=== PATIENT | female | born 1965 ===

== ENCOUNTER 2023-08-27 09:12 | Emergency (ER) | payer BC, SELFPAY ==
[2023-08-27] VITALS (10 sets, daily range): BP systolic 129–134; BP diastolic 74–83; PULSE 79–91; RESP 18; TEMP 36.4–36.5; O2SAT 93–97; BMI 32.8
--- NOTE | 2023-08-27 09:47 | ED_ITS ---
HPI - General Adult General Date Seen: 08/27/23 Chief complaint: Shortness of Breath/Dyspnea Stated complaint: pain rib area,difficulty breathing Time Seen by Provider: 08/27/23 09:33 Source: patient Mode of arrival: ambulatory Limitations: no limitations History of Present Illness HPI narrative: patient is a 58-year-old female with a history of hypothyroidism, asthma, hyperlipidemia presenting to the emergency department for cough, chest pain. She states beginning of July she tested positive for COVID and had upper respiratory symptoms for about 2 weeks. She was feeling better but then states about a week ago the symptoms all came back. She states the symptoms include cough, congestion, fatigue. She states she only feels short of breath when she coughs and will have some midsternal chest and bilateral lower rib pain on deep breaths. She has no history of heart disease. Denies fevers, chills, abdominal pain, nausea / vomiting, diarrhea, constipation, lightheadedness, dizziness. She states she want to make sure she was not developing pneumonia. she does states she has been using her home breathing treatments and states that sometimes helps. Related Data Home Medications Medication Instructions Recorded Confirmed albuterol sulfate 90 mcg/actuation 2 - 4 puff inhalation Q4-6H PRN 08/27/23 08/27/23 aerosol inhaler citalopram 40 mg tablet 40 mg PO DAILY 08/27/23 08/27/23 levothyroxine 125 mcg tablet 125 mcg PO QAM 08/27/23 08/27/23 loratadine 5 mg/5 mL oral solution 5 mg PO BID 08/27/23 08/27/23 (Claritin) simvastatin 40 mg tablet 40 mg PO DAILY 08/27/23 08/27/23 trazodone 50 mg tablet 50 mg PO QPM 08/27/23 08/27/23 Previous Rx's Medication Instructions Recorded albuterol sulfate 2.5 mg/3 mL 2.5 mg (3 mL) inhalation Q4-6H PRN 08/27/23 (0.083 %) solution for nebulization #90 mL albuterol sulfate 90 mcg/actuation 2 puff inhalation Q4H PRN 08/27/23 aerosol inhaler shortness of breath or wheezing #8.5 grams albuterol sulfate 90 mcg/actuation 2 puff inhalation Q6H PRN 08/27/23 aerosol inhaler shortness of breath or wheezing #8.5 grams amoxicillin 875 mg-potassium 1 tab PO BID #14 tabs 08/27/23 clavulanate 125 mg tablet Allergies Allergy/AdvReac Type Severity Reaction Status Date / Time No Known Drug Allergies Allergy Verified 08/27/23 09:32 Review of Systems Status of ROS: Reports: 10 or more systems reviewed and unremarkable except as noted in History and below PFS PFS Social History Smoking Status: Never smoker Do you use any of these nicotine containing products: None How often do you have a drink containing alcohol: never How often do you have six or more drinks on one occasion: Never AUDIT-C Alcohol total score: 0 Non-prescribed substance use: denies use service: No Exam Narrative: Exam Narrative: Const: Well-nourished, Well-developed, in mild distress Eyes: PERRL, no conjunctival injection, and symmetrical lids HENT: Atraumatic external nose and ears. Moist mucous membranes. Neck: Symmetric, trachea midline, No thyromegaly. CVS: RRR, No murmurs or gallops. Peripheral pulses 2+ and equal in all extremities RESP: Unlabored respiratory effort. Mild wheezing throughout lung alonzo GI: Nontender/Nondistended, No rebound or guarding. MSK:Extremities w/o deformity, Normal Active ROM Skin: Warm, Dry. No rashes or lesions. Neuro: Normal Muscle tone, No focal neurological deficits. Psych: Awake, Alert, & Oriented x3. Appropriate mood and affect. Const: Vital Signs, click to edit/add: Vital Signs - 24 hr 08/27/23 09:23 08/27/23 10:59 08/27/23 11:00 Temperature 97.7 F Pulse Rate 81 80 Pulse Rate [Right Pulse Oximeter] 87 Respiratory Rate 18 Blood Pressure [Ri ght Upper Arm] 134/83 Pulse Oximetry 96 94 94 Oxygen Delivery Me thod Room Air 08/27/23 11:15 08/27/23 11:25 Temperature 97.6 F Pulse Rate 81 Pulse Rate [Right Pulse Oximeter] Respiratory Rate Blood Pressure [Ri ght Upper Arm] 129/74 Pulse Oximetry 93 Oxygen Delivery Me thod Course Vital Signs Vital signs: Initial Vital Signs Temperature 97.7 F 08/27/23 09:23 Temperature Source Temporal Artery Scan 08/27/23 09:23 Pulse Rate 87 08/27/23 09:23 Pulse Rhythm Regular 08/27/23 09:23 Respiratory Rate 18 08/27/23 09:23 Blood Pressure 134/83 08/27/23 09:23 Blood Pressure Mean 100 08/27/23 09:23 Blood Pressure Position Sitting 08/27/23 09:23 Pulse Oximetry 96 08/27/23 09:23 Oxygen Delivery Method Room Air 08/27/23 09:23 Vital Signs Temperature 97.7 F 08/27/23 09:23 Pulse Rate 87 08/27/23 09:23 Respiratory Rate 18 08/27/23 09:23 Blood Pressure 134/83 08/27/23 09:23 Pulse Oximetry 96 08/27/23 09:23 Oxygen Delivery Method Room Air 08/27/23 09:23 Temperature 97.6 F 08/27/23 11:25 Pulse Rate 81 08/27/23 11:15 Respiratory Rate 18 08/27/23 09:23 Blood Pressure 129/74 08/27/23 11:25 Pulse Oximetry 93 08/27/23 11:15 Oxygen Delivery Method Room Air 08/27/23 09:23 Medications Administered Medications: Discontinued Medications Generic Name Dose Route Start Last Admin Trade Name Freq PRN Reason Stop Dose Admin Albuterol 2.5 mg 08/27/23 09:45 08/27/23 10:05 Albuterol Sulfate 2.5 Mg/3 Ml Vial.Neb NEB 08/27/23 09:46 2.5 mg ONCE ONE Administration Medical Decision Making [facility] Narrative Medical decision making narrative: Patient is a 58-year-old female presenting to emergency department for chest pain. ACS workup was ordered include a CBC, CMP, troponin, EKG. with the history of COVID worsening symptoms on deep breath there is concerned for PE and a D-dimer was ordered. Will use imaging check for pneumonia or pneumothorax. Symptoms could all be viral in nature and will repeat test COVID/flu/ RSV. She did have some wheezing on exam she does states she has a she could use a breathing treatment and albuterol was ordered. D-dimer returned elevated at 0.81. Rest her lab work shows no concerning findings. COVID/flu/RSV test is all negative. At this time we will do a CTA to better evaluate her symptoms. After the CTA there is no concerning abnormalities seen. She is also feeling better after the albuterol treatment and wheezing is gone on reexamination. Her symptoms might be from a different viral syndrome but she is having some sinusitis with sinus pain on palpation. Says symptoms have been going on for over 10 days I will treat her with antibiotics for the sinusitis. She also needs a refill of her albuterol nebulizer and inhaler and this prescription was also ordered. Lab Data Labs: Lab Results 08/27/23 08/27/23 Range/Units 09:39 10:00 WBC 6.97 (4.50-11.00) K/uL RBC 4.10 (4.00-5.20) m/uL Hgb 12.0 (12.0-16.0) gm/dL Hct 36.0 (33.0-51.0) % MCV 88 (80-100) fL MCH 29 (26-34) pg MCHC 33 (32-36) gm/dL RDW Coeff of [place] 13.6 (11.5-15.5) % Plt Count 267 (140-440) K/uL Neut % (Auto) 50.0 (42.0-72.0) % Lymph % (Auto) 22.5 (20-44) % Morrill % (Auto) 5.3 (0.0-11.0) % Eos % (Auto) 21.8 H (0.0-7.0) % Baso % (Auto) 0.3 (0.0-3.0) % Neut # (Auto) 3.48 (1.7-7.0) K/uL Lymph # (Auto) 1.57 (0.90-2.90) K/uL Morrill # (Auto) 0.40 (0.00-0.90) K/UL Eos # (Auto) 1.50 H (0.00-0.50) K/uL Baso # (Auto) 0.02 (0.00-0.30) K/uL Abs Immat Gran (auto) 0.01 (0.00-0.30) K/uL Imm/Tot Granulo (auto) 0.1 % D-Dimer Quant (PE/DVT) 0.81 H (0.00-0.50) ug/ml Sodium 142 (135-149) mmol/L Potassium 4.3 (3.6-5.1) mmol/L Chloride 107 (96-114) mmol/L Carbon Dioxide 27 (20-32) mmol/L Anion Gap 8 (7-15) mEq/L BUN 12 (7-30) mg/dL Creatinine 0.7 (0.5-1.5) mg/dL Estimated Creat Clear 61.39 Estimated GFR 99 ml/min Glucose 135 H (60-115) mg/dL Calcium 9.1 (8.4-10.6) mg/dL Total Bilirubin 1.3 (0.1-1.5) mg/dL AST 29 (12-35) U/L ALT 22 (4-35) U/L Alkaline Phosphatase 79 (40-150) U/L Troponin I < 0.01 L (0.01-0.04) ng/mL Total Protein 8.0 (6.0-8.3) g/dL Albumin 4.7 (3.3-5.0) g/dL SARS-CoV-2 (PCR) Negative SARS-CoV-2 (Negative) Influenza Type A (PCR) Negative PCR FLU A (Negative) Influenza Type B (PCR) Negative PCR FLU B (Negative) RSV (PCR) Negative PCR RSV (Negative) Imaging Data CTA chest: Radiologist's impression: 1. Low lung volumes. 2. No pulmonary embolus. 3. Thyromegaly. Consider outpatient thyroid ultrasound. Please note that all CT scans at this facility use dose modulation, iterative reconstruction, and/or weight-based dosing when appropriate to reduce radiation dose to as low as reasonably achievable. ECG Data Attestation: I personally reviewed and interpreted this ECG as follows: Prior ECG tracings: not available for review Interpretation: Normal sinus rhythm with a rate of 93 beats per minute, normal intervals, normal axis, ST or T-wave abnormalities Discharge Plan Discharge Clinical Impression: Sinusitis Qualifiers: Sinusitis location: maxillary Chronicity: acute Recurrence: not specified as recurrent Qualified Code(s): J01.00 - Acute maxillary sinusitis, unspecified Patient Disposition: Home, Self-Care Condition: Improved Instructions: Sinusitis (ED) Additional Instructions: Take the medications as prescribed. Return to emergency department for new worsening symptoms. follow-up with the primary care provider if symptoms persist Prescriptions: New amoxicillin-pot clavulanate 875-125 mg tablet 1 tab PO BID Qty: 14 0RF albuterol sulfate 90 mcg/actuation HFA aerosol inhaler 2 puff inhalation Q6H PRN (Reason: shortness of breath or wheezing) Qty: 8.5 0RF albuterol sulfate 90 mcg/actuation HFA aerosol inhaler 2 puff inhalation Q4H PRN (Reason: shortness of breath or wheezing) Qty: 8.5 0RF albuterol sulfate 2.5 mg /3 mL (0.083 %) solution for nebulization 2.5 mg inhalation Q4-6H PRNQty: 90 0RF No Action citalopram 40 mg tablet 40 mg PO DAILY trazodone 50 mg tablet 50 mg PO QPM simvastatin 40 mg tablet 40 mg PO DAILY levothyroxine 125 mcg tablet 125 mcg PO QAM albuterol sulfate 90 mcg/actuation HFA aerosol inhaler 2 - 4 puff INHALATION Q4-6H PRN loratadine [Claritin] 5 mg/5 mL solution 5 mg PO BID Follow Up/Referrals: Linda Haile DO [Primary Care Provider] - Stand Alone Forms: [facility] Info Instructions
--- OUTSIDE RECORDS SUMMARY | 2023-08-27 09:57 | XMS_ITS | Continuity of Care Document ---
Author Name Unknown Organization [facility] Address [address] [place] [address] Phone Care Team Providers Care Technical Product Manager Name Role Phone Mateo Coulter MD Unavailable Unavailable Allergies, Adverse Reactions, Alerts Substance Reaction Status Criticality No Known Allergies Active No Inform ation Medications Medication Instructions Dosage Effective Dates (start - stop) Status Comments ALBUTEROL SULFATE (unknown strength) Not Available - Active NORCO (unknown strength) Not Available - A ctive PRILOSEC (unknown strength) Not Available - Active SIMVASTATIN (unknown strength) Not Available - Active FELDENE (unknown strength) Not Available - Active SYNTHROID (unknown strength) Not Available - Active GABAPENTIN (unknown strength) Not Available - Active PERCOCET (unknown strength) Not Available - Active ERGOCALCIFEROL (VITAMIN D2) (unknown strength) Not Available - Active COENZYME Q10 (unknown strength) Not Available - Active DULERA (unknown strength) Not Available - Active VISTARIL (unknown strength) Not Available - Active Procedures Procedure Date Office/Outpatient Visit,Est, Mod 2017 Office/Outpatient Visit,Est, Mod 2017 Office/Outpatient Visit,Est, Mod 2015 Office/Outpatient Visit,New, Mod 2015 Advance Directives Directive Yes / No Effective Date File Name No Information Encounters Encounter Description Practice Location Reason(s) For Visit Diagnoses Date Provider Providers Copied on Encounter [facility], [address], [place], [place], [id number], [place] tel:[phone] [facility] - [facility] No Information Yfn Galindo. [facility], [address] [place] [address], [address], [place], [place], [id number], [place]. tel:[phone] Office/Outpat ient Visit,Est, Mod [facility], [address], [place], [id number], [place] tel:[phone] [facility] Spinal stenosis, cervical region Liborio Tony. [facility], [address], [place], [place], [id number], [place]. tel:[phone] Referring Provider: Charley Mendosa, [facility] [address], [place], [address]. tel:[phone] Office/Outpat ient Visit,Est, Mod [facility], [address], [place], [id number], [place] tel:[phone] [facility] Spinal stenosis, cervical region Liborio Tony. [facility], [address], [place], [id number], [place]. tel:[phone] Referring Provider: Charley Mendosa, [facility] [address], [place], [address]. tel:[phone] Office/Outpat ient Visit,Est, Mod [facility], [address], [place], [place], [id number], [place] tel:[phone] [facility] Other spondylosis, cervical region Wong Arguello. [facility], [address] [place] [address] [address], [place], [place], [id number], [place]. tel:[phone] Referring Provider: Charley Mendosa, [facility] [address], [place], [address]. tel:[phone] Office/Outpat ient Visit,New, Mod [facility], [address], [place], [id number], [place] tel:[phone] [facility] Radiculopathy , cervical region Wong Arguello. [facility], [address] [place] [address] [address], [place], [place], [id number], [place]. tel:[phone] Referring Provider: Charley Mendosa, [facility] [address], [place], [address]. tel:[phone] Family History Family Member Type Diagnosis Age At Onset Problem (finding) Problem (finding) Problem (finding) Problem (finding) Payers Payer name Insurance type Covered alliance party ID Gómez hardin(s) Karen [facility] 09 [id number] Social History Type Description Quantity Date Captured Comments Sex Female Smoking Status No Information Chief Complaint And Reason For Visit No Information Reason For Referral Reason For Referral No Information Plan Of Treatment Date Type Action Status Future Order: Radiology Order MR I-Cervical (MRI), Sent on: Sent Future Order: Radiology Order Ce rvical 4 Or 5 Views ([id number]), Sent on: Sent History Of Present Illness Encounter Date Complaint History Of Prese nt Illness No Information Functional Status Date Functional Assessmen t No Information Instructions Date Instruction Additional Infor mation No Information Assessments Type Assessment Date No Information Patient Care Teams Name Effective Dates (start - stop) Status Members No Information
--- OUTSIDE RECORDS SUMMARY | 2023-08-27 09:57 | XMS_ITS | Continuity of Care Document ---
Author Name Unknown Organization [facility] Address [address] [place] [address] Phone Care Team Providers Care Felt Hooker Name Role Phone Mateo Coulter MD Unavailable [...] Copied on Encounter [facility], [address], [place], [place], [id number], [place] tel:[phone] [facility] - [place] No Information Yfn Galindo. [facility], [address] [place] [address], [address], [place], [place], [id number], [place]. tel:[phone] Office/Outpat ient Visit,Est, Mod [facility], [address], [place], [place], [id number], [place] tel:[phone] [facility] Spinal stenosis, cervical region Liborio Tony. [facility], [address], [place], [place], [address], [place]. tel:[phone] Referring Provider: Charley Mendosa, [facility] [address], [place], [address]. tel:[phone] Office/Outpat ient Visit,Est, Mod [facility], [address], [place], [id number], [place] tel:[phone] [facility] Spinal stenosis, cervical region Liborio Tony. [facility], [address], [place], [place], [address], [place]. tel:[phone] Referring Provider: Charley Mendosa, [facility] [address], [place], [address]. tel:[phone] Office/Outpat ient Visit,Est, Mod [facility], [address], [place], [id number], [place] tel:[phone] [facility] Other spondylosis, cervical region Wong Arguello. [facility], [address] [place] [address] [address], [place], [place], [address], [place]. tel:[phone] Referring Provider: Charley Mendosa, [facility] [address], [place], [address]. tel:[phone] Office/Outpat ient Visit,New, Mod [facility], [address], [place], [id number], [place] tel:[phone] [facility] Radiculopathy , cervical region Wong Arguello. [facility], [address] [place] [address] [address], [place], [place], [id number], [place]. tel:[phone] Referring Provider: Charley Mendosa, [facility] [address], [place], [address]. tel:[phone] Family History Family Member Type Diagnosis Age At Onset Problem (finding) Problem (finding) Problem (finding) Problem (finding) Payers Payer name Insurance type Covered constitution party ID Gómez hardin(s) Karen [facility] 09 [id number] Social History Type Description Quantity Date Captured [...]
[2023-08-27] MEDS: ALBUTEROL SULFATE 2.5 MG/3 ML VIAL.NEB NEB (10:05)
[2023-08-27 10:06] LABS: Basophils Absolute Auto 0.02 K/uL (0.00-0.30); Basophils Percent Auto 0.3 % (0.0-3.0); Eosinophils Percent Auto 21.8 % (0.0-7.0); Immature Granulocytes Abs Auto 0.01 K/uL (0.00-0.30); Immature Granulocytes Pct Auto 0.1 %; Lymphocytes Absolute Auto 1.57 K/uL (0.90-2.90); Lymphocytes Percent Auto 22.5 % (20-44); Mean Corpuscular HGB Conc 33 gm/dL (32-36); Mean Corpuscular Hemoglobin 29 pg (26-34); Mean Corpuscular Volume 88 fL (80-100); Monocytes Percent Auto 5.3 % (0.0-11.0); Neutrophils Absolute Auto 3.48 K/uL (1.7-7.0); Platelet Count* 267 K/uL (140-440); RDW Coefficient of Variation % 13.6 % (11.5-15.5); White Blood Count* 6.97 K/uL (4.50-11.00)
[2023-08-27 10:20] LABS: Potassium* 4.3 mmol/L (3.6-5.1); Slide Review Reflex No; Sodium* 142 mmol/L (135-149)
[2023-08-27 10:22] LABS: Bilirubin Total* 1.3 mg/dL (0.1-1.5); Creatinine* 0.7 mg/dL (0.5-1.5); Est. Creatinine Clearance* 61.39; Estimated Glomerular Filt Rate 99 ml/min
[2023-08-27 10:23] LABS: Alanine Aminotransferase* 22 U/L (4-35); Alkaline Phosphatase* 79 U/L (40-150); Aspartate Amino Transferase* 29 U/L (12-35); Blood Urea Nitrogen* 12 mg/dL (7-30); Calcium* 9.1 mg/dL (8.4-10.6); Carbon Dioxide* 27 mmol/L (20-32); Glucose* 135 mg/dL (60-115)
[2023-08-27 10:33] LABS: D Dimer Quantitative* 0.81 ug/ml (0.00-0.50)
[2023-08-27 10:34] LABS: PCR FLU A Negative PCR FLU A (Negative); PCR FLU B Negative PCR FLU B (Negative); PCR RSV Negative PCR RSV (Negative)
[2023-08-27 10:35] LABS: Troponin I* < 0.01 ng/mL (0.01-0.04)
[2023-08-27 10:36] LABS: Albumin* 4.7 g/dL (3.3-5.0); Anion Gap 8 mEq/L (7-15); Chloride* 107 mmol/L (96-114)
--- NOTE | 2023-08-27 10:37 | CRLHL7_ITS ---
For Patients: As a result of the Century Cures Act, medical imaging exams and procedure reports are released immediately into your electronic medical record. You may view this report before your referring provider. If you have questions, please contact your health care provider. INDICATION: Chest pain COMPARISON: None. TECHNIQUE: CT angiogram chest with contrast, pulmonary embolism protocol. Multiplanar axial, coronal, and sagittal reformats are included. MIP images to improve detection of pulmonary emboli are included. Intravenous contrast: 95 mL Isovue 370 FINDINGS: PE: Well-timed contrast bolus. No pulmonary emboli. Normal caliber main pulmonary artery. Normal sized right heart chambers. No reflux of contrast below the diaphragm. Heart and great vessels: No pericardial effusion. Normal cardiac chamber size. No atherosclerotic plaques. No aortic aneurysm. Lungs: Expiratory phase imaging. Low lung volumes. No nodules or masses. No consolidations. Normal appearance of the pulmonary interstitium. Pleura: No pleural effusion. No pneumothorax. Airway: Normal tracheobronchial tree. Lymph nodes: No thoracic adenopathy. Mediastinum: Thyromegaly. No pneumomediastinum. Bones: No fractures. No focal bone lesions. Normal for age. Chest wall: Normal. No masses. Upper abdomen: Normal. IMPRESSION: 1. Low lung volumes. 2. No pulmonary embolus. 3. Thyromegaly. Consider outpatient thyroid ultrasound. Please note that all CT scans at this facility use dose modulation, iterative reconstruction, and/or weight-based dosing when appropriate to reduce radiation dose to as low as reasonably achievable. Dictated by Elvie Gannon MD @ 08/27/2023 12:17:52 PM (Electronically Signed)
[2023-08-27 11:59] LABS: SARS PCR* Negative SARS-CoV-2 (Negative)
== END 2023-08-27 12:50 | disposition home or self-care (01) ==
PROVIDERS: Emergency Provider Student in an Organized Health Care Education/Training Program; PCP Family Medicine
DX: J32.9 Chronic sinusitis, unspecified (principal)
CPT/HCPCS: 36415; 71275; 80053; 84484; 85025; 85379; 87631; 93005; 94640; 99283; 99284; 99285; Q9967